=== PATIENT | male | born 1980 | race Caucasian/White ===

== ENCOUNTER 2022-10-23 00:31 | Emergency (ER) | payer BC, SELFPAY ==
--- NOTE | 2022-10-23 00:36 | ED_ITS ---
HPI - General Adult General Time Seen by Provider: 00:36 Date Seen: 10/23/22 Chief complaint: Abdominal Pain Stated complaint: lower right abdominal and back pain Time Seen by Provider: 10/23/22 00:36 Source: patient, RN notes reviewed and old records reviewed Mode of arrival: ambulatory Limitations: no limitations History of Present Illness HPI narrative: 42-year-old male who comes in today with right-sided abdominal pain and right flank pain. The pain in the right lower quadrant and right groin started about 2 hours prior to coming emergency department although patient says he had a little bit yesterday as well. With the pain is severe he gets nauseated but no vomiting. Denies urinary symptoms, no diarrhea or constipation. Took ibuprofen prior to coming the emergency department with some improvement. Related Data Allergies Allergy/AdvReac Type Severity Reaction Status Date / Time No Known Drug Allergies Allergy Verified 10/23/22 00:43 Review of Systems Status of ROS: Reports: 10 or more systems reviewed and unremarkable except as noted in History and below PFSH PFSH Social History Do you use any of these nicotine containing products: None Second hand tobacco smoke exposure: No How often do you have a drink containing alcohol: monthly or less AUDIT-C Alcohol total score: 1 Non-prescribed substance use: denies use service: No Exam Narrative: Exam Narrative: General: Well-developed and well-nourished, no acute distress Head: Atraumatic and normocephalic Eyes: Pupils are equal reactive, extraocular motions intact, conjunctiva clear ENT: External nose and ears are normal, posterior pharynx without erythema or exudate Neck: No midline cervical tenderness, full spontaneous range of motion the neck, trachea midline, no adenopathy Heart: Regular rate and rhythm no murmurs or thrills Lungs: Clear to auscultation bilaterally without wheezes or crackles Abdomen: Soft, nontender, nondistended with active bowel sounds Musculoskeletal: No tenderness, deformity, or edema Neurologic: Awake, alert, and oriented x3, no gross focal neurologic deficits, cranial nerves intact as tested Psych: Mood and affect are appropriate Skin: No rashes Const: Vital Signs, click to edit/add: Vital Signs - 24 hr 10/23/22 00:37 10/23/22 01:09 10/23/22 01:33 Temperature 97.8 F 97.6 F Pulse Rate [Right Pulse Oximeter] 74 80 Respiratory Rate 18 Blood Pressure [Ri ght Upper Arm] 204/128 H 173/107 H 155/97 H Pulse Oximetry 98 98 Oxygen Delivery Me thod Room Air Room Air Course Course Hospital Course: Patient with right lower quadrant pain radiating into the bright low back. No tenderness on exam. Symptoms could be related to acute appendicitis although again no tenderness, no right upper quadrant tenderness to suggest acute cholecystitis. Symptoms are most consistent with kidney stone, other intra-a bdominal pathology such as mesenteric adenitis also possible. Labs and CT scan are ordered along with Toradol, Zofran. Reevaluation(s) Time of Reevaluation #1: 01:29 Reevaluation #1: Labs independently interpreted by me demonstrate normal white blood cell count, reassuring basic panel, urinalysis with small amount of blood. CT scan demonstrates a right distal ureteral stone measuring about 6 x 2 mm. Patient remains comfortable in the emergency department and will be discharged medication up with pain, follow-up with [facility] or [place] [facility]. Vital Signs Vital signs: Initial Vital Signs Temperature 97.8 F 10/23/22 00:37 Temperature Source Temporal Artery Scan 10/23/22 00:37 Pulse Rate 74 10/23/22 00:37 Pulse Rhythm Regular 10/23/22 00:37 Respiratory Rate 18 10/23/22 00:37 Blood Pressure 204/128 H 10/23/22 00:37 Blood Pressure Mean 153 H 10/23/22 00:37 Blood Pressure Position Sitting 10/23/22 00:37 Pulse Oximetry 98 10/23/22 00:37 Oxygen Delivery Method Room Air 10/23/22 00:37 Vital Signs Temperature 97.8 F 10/23/22 00:37 Pulse Rate 74 10/23/22 00:37 Respiratory Rate 18 10/23/22 00:37 Blood Pressure 204/128 H 10/23/22 00:37 Pulse Oximetry 98 10/23/22 00:37 Oxygen Delivery Method Room Air 10/23/22 00:37 Temperature 97.6 F 10/23/22 01:33 Pulse Rate 80 10/23/22 01:33 Respiratory Rate 18 10/23/22 00:37 Blood Pressure 155/97 H 10/23/22 01:33 Pulse Oximetry 98 10/23/22 01:33 Oxygen Delivery Method Room Air 10/23/22 01:33 Medical Decision Making Medical Records Medical records reviewed: Yes I reviewed the patient's medical records Lab Data Lab results reviewed: Yes I reviewed the patient's lab results Labs: Lab Results 10/23/22 10/23/22 Range/Units 00:45 01:00 WBC 8.58 (4.50-11.00) K/uL RBC 5.50 (4.30-5.90) m/uL Hgb 16.4 (13.5-17.5) gm/dL Hct 47.1 (37.0-53.0) % MCV 86 (80-100) fL MCH 30 (26-34) pg MCHC 35 (32-36) gm/dL RDW Coeff of Yana 12.2 (11.5-15.5) % Plt Count 209 (140-440) K/uL Neut % (Auto) 55.7 (42.0-72.0) % Lymph % (Auto) 32.9 (20-44) % [place] % (Auto) 7.5 (0.0-11.0) % Eos % (Auto) 2.8 (0.0-7.0) % Baso % (Auto) 0.2 (0.0-3.0) % Neut # (Auto) 4.78 (1.7-7.0) K/uL Lymph # (Auto) 2.82 (0.90-2.90) K/uL [place] # (Auto) 0.60 (0.00-0.90) K/UL Eos # (Auto) 0.24 (0.00-0.50) K/uL Baso # (Auto) 0.02 (0.00-0.30) K/uL Sodium 143 (135-149) mmol/L Potassium 4.0 (3.6-5.1) mmol/L Chloride 104 (96-114) mmol/L Carbon Dioxide 29 (20-32) mmol/L BUN 15 (5-24) mg/dL Creatinine 1.3 (0.5-1.5) mg/dL Estimated Creat Clear 99.49 Estimated GFR 70 ml/min Glucose 128 H (60-115) mg/dL Calcium 9.5 (8.4-10.6) mg/dL Urine Color Yellow (Yellow) Urine Appearance Clear (Clear) Urine pH 5.5 (5.0-8.5) Ur Specific [place] 1.025 (1.000-1.030) Urine Protein 1+ A (Negative) Urine Glucose (UA) Negative (Negative) Urine Ketones Negative (Negative) Urine Blood 1+ A (Negative) Urine Nitrite Negative (Negative) Urine Bilirubin Negative (Negative) Urine Urobilinogen 0.2 (0.2-1.0) Ur Leukocyte Esterase Negative (Negative) Urine RBC 2-5 A (0-2) Urine WBC 0-2 (0-5) Ur Squamous Epith Cells Few (None-Few) Urine Bacteria Few A (None) Discharge Plan Discharge Clinical Impression: Calculus, ureteral Patient Disposition: Home w/ Parent or Adult Condition: Stable Instructions: Ureteral Stones (ED) Additional Instructions: Drink to thirst Take Tylenol and ibuprofen alternating every 6 hours Take oxycodone as needed for pain, Zofran for nausea Follow-up with [facility] [phone] or [facility] [phone] Activity Level: No Restrictions Discharge Diet: Regular Stand Alone Forms: [facility] Inst[facility]
[2022-10-23 00:37] VITALS: BP 204/128; PULSE 74; RESP 18; TEMP 36.6; O2SAT 98; BMI 38.4
--- NOTE | 2022-10-23 00:41 | CRLHL7_ITS ---
For Patients: As a result of the Century Cures Act, medical imaging exams and procedure reports are released immediately into your electronic medical record. You may view this report before your referring provider. If you have questions, please contact your health care provider. INDICATION: Right lower quadrant flank pain. TECHNIQUE: CT abdomen and pelvis without contrast. Permanently recorded images are archived. COMPARISON: None. FINDINGS: Lower chest: Unremarkable. Liver: Diffuse fatty infiltration. Normal contour. No suspicious mass. Gallbladder and bile ducts: No stones or inflammation. No biliary dilatation. Pancreas: Unremarkable. No mass or inflammation. Spleen: Normal in size. No masses. Adrenal glands: Normal in size. No nodules. Kidneys, Ureters, and Bladder: Several nonobstructing nephrolithiasis bilaterally. 5 mm stone in the right distal ureter with associated mild proximal hydroureteronephrosis. Unremarkable left ureter and bladder. GI tract: Unremarkable. Normal in caliber. No sign of inflammation. Normal appendix. Vasculature: Abdominal aorta is normal in caliber. Lymph nodes: No lymphadenopathy. Peritoneum/Abdominal Wall: Unremarkable. No free air or significant free fluid. Pelvis: Unremarkable. No pelvic masses. Bones: Unremarkable for age. IMPRESSION: 5 mm stone in the right distal ureter with associated mild proximal hydroureteronephrosis. Additional bilateral nonobstructing nephroliths. Hepatic steatosis. Please note that all CT scans at this facility use dose modulation, iterative reconstruction, and/or weight-based dosing when appropriate to reduce radiation dose to as low as reasonably achievable. Dictated by Teddy Liu MD @ 10/23/2022 2:07:36 AM (Electronically Signed)
[2022-10-23] MEDS: KETOROLAC 15 MG/ML inj IVP (00:58)
[2022-10-23] MEDS: ONDANSETRON 2 MG/ML inj 4 MG IVP (00:58)
[2022-10-23 01:07] LABS: Basophils Absolute Auto 0.02 K/uL (0.00-0.30); Basophils Percent Auto 0.2 % (0.0-3.0); Eosinophils Absolute Auto 0.24 K/uL (0.00-0.50); Eosinophils Percent Auto 2.8 % (0.0-7.0); Hematocrit 47.1 % (37.0-53.0); Hemoglobin* 16.4 gm/dL (13.5-17.5); Immature Granulocytes Abs Auto 0.08 K/uL (0.00-0.30); Immature Granulocytes Pct Auto 0.9 %; Lymphocytes Absolute Auto 2.82 K/uL (0.90-2.90); Lymphocytes Percent Auto 32.9 % (20-44); Mean Corpuscular HGB Conc 35 gm/dL (32-36); Mean Corpuscular Hemoglobin 30 pg (26-34); Mean Corpuscular Volume 86 fL (80-100); Monocytes Percent Auto 7.5 % (0.0-11.0); Neutrophils Absolute Auto 4.78 K/uL (1.7-7.0); Neutrophils Percent Auto 55.7 % (42.0-72.0); Platelet Count* 209 K/uL (140-440); RDW Coefficient of Variation % 12.2 % (11.5-15.5); White Blood Count* 8.58 K/uL (4.50-11.00)
[2022-10-23 01:07] LABS: Appearance Urine Clear (Clear); Bilirubin Urine Negative (Negative); Blood Urine 1+ (Negative); Color Urine Yellow (Yellow); Glucose Urine Negative (Negative); Ketones Urine Negative (Negative); Leukocyte Esterase Urine Negative (Negative); Nitrite Urine Negative (Negative); Protein Urine 1+ (Negative); Specific Gravity Urine 1.025 (1.000-1.030); Urobilinogen Urine 0.2 (0.2-1.0); pH Urine 5.5 (5.0-8.5)
[2022-10-23 01:09] VITALS: BP 173/107
[2022-10-23 01:10] LABS: Slide Review Reflex No
[2022-10-23 01:16] LABS: Bacteria Urine Few; Squamous Epithelial Cell Urine Few (None-Few); WBC Urine 0-2 (0-5)
[2022-10-23 01:20] LABS: Chloride* 104 mmol/L (96-114); Sodium* 143 mmol/L (135-149)
[2022-10-23 01:22] LABS: Creatinine* 1.3 mg/dL (0.5-1.5); Est. Creatinine Clearance* 99.49; Estimated Glomerular Filt Rate 70 ml/min
[2022-10-23 01:23] LABS: Blood Urea Nitrogen* 15 mg/dL (5-24); Calcium* 9.5 mg/dL (8.4-10.6); Carbon Dioxide* 29 mmol/L (20-32); Glucose* 128 mg/dL (60-115)
[2022-10-23 01:33] VITALS: BP 155/97; PULSE 80; TEMP 36.4; O2SAT 98
== END 2022-10-23 02:02 | disposition home or self-care (01) ==
PROVIDERS: Emergency Provider Family Medicine
DX: N20.1 Calculus of ureter (principal)
CPT/HCPCS: 36415; 74176; 80048; 81001; 85025; 87086; 96374; 96375; 99284; J1885; J2405